=== PATIENT | male | born 2000 | race Two or more races ===

== ENCOUNTER 2023-02-27 00:16 | Emergency (ER) | payer MEDICAID ==
[~2023-02-27] VITALS: Ht 172.7 cm; Wt 90.0 kg
[2023-02-27] MEDS ORDERED: ONDANSETRON HCL 4 MG/2 ML VIAL IVP ONE ×2 (01:15→02:45)
[2023-02-27] MEDS ORDERED: HYDROmorphone HCL 2 MG/ML SYRINGE IVP ONE (01:15)
[2023-02-27 01:44] LABS: BASOPHILS % (AUTO) 0.1 % (0.0-2.0); EOSINOPHILS % (AUTO) 0.1 % (1.0-6.0); HEMATOCRIT 46.3 % (41-53); HEMOGLOBIN 15.5 g/dL (13.5-17.5); LYMPHOCYTES # (AUTO) 1.8 K/uL (1.0-4.8); MEAN CORPUSCULAR HEMOGLOBIN 30.9 pg (26.0-34.0); MEAN CORPUSCULAR HGB CONC 33.4 G/dL (31.0-37.0); MEAN CORPUSCULAR VOLUME 92 fL (80-100); MONOCYTES # (AUTO) 1.3 K/uL (0.1-1.0); NEUTROPHILS # (AUTO) 18.7 K/uL (1.8-7.7); PLATELET COUNT (AUTO) 248 K/uL (150-450); RED BLOOD CELL COUNT(AUTO) 5.02 MIL/uL (4.50-5.90); RED CELL DISTRIBUTION WIDTH 13.1 % (11.5-14.5)
[2023-02-27] MEDS ORDERED: BACITRACIN 0.9 GM PACKET OINTMENT TP ONE (01:45)
[2023-02-27] MEDS ORDERED: PERTUSS(ACELL),DIPH,TET VAC/PF 0.5 ML SYRINGE IM. ONE (01:45)
[2023-02-27 01:51] LABS: NEUTROPHILS % (AUTO) 85.8 % (40.0-70.0)
[2023-02-27 01:54] LABS: ANION GAP 11 mmol/L (8-16); CALCIUM, TOTAL 8.7 mg/dL (8.8-10.5); CARBON DIOXIDE 26 mmol/L (22-29); CHLORIDE 106 mmol/L (98-107); GLOMERULAR FILTR. RATE CALC > 60 mL/min (>60); GLUCOSE,RANDOM 102 mg/dL (70-110); POTASSIUM 3.3 mmol/L (3.5-5.1); SODIUM SERUM 143 mmol/L (136-145)
[2023-02-27] MEDS ORDERED: IOHEXOL 350 MG/ML 100 ML VIAL ONE (02:15)
[2023-02-27] MEDS ORDERED: SODIUM CHLORIDE 0.9% 100 ML ONE (02:15)
[2023-02-27] MEDS ORDERED: LORazepam 2 MG/ML VIAL IVP ONE (02:45)
[2023-02-27 05:30] VITALS: BP 129/78
[2023-02-27] MEDS ORDERED: BACL10TA PO (06:11)
[2023-02-27] MEDS ORDERED: ACET-2080 PO (06:11)
[2023-02-27] MEDS ORDERED: IBUP-1554 PO (06:11)
== END 2023-02-27 06:30 | disposition home or self-care (01) ==
LOC: EMS 00:20
DX: S30.1XXA Contusion of abdominal wall, initial encounter (principal); S80.02XA Contusion of left knee, initial encounter; S80.01XA Contusion of right knee, initial encounter; S90.32XA Contusion of left foot, initial encounter; S90.31XA Contusion of right foot, initial encounter; S20.212A Contusion of left front wall of thorax, initial encounter; V89.2XXA Person injured in unspecified motor-vehicle accident, traffic, initial encounter; Y93.89 Activity, other specified; Y92.89 Other specified places as the place of occurrence of the external cause; Y99.8 Other external cause status
CPT/HCPCS: 80048; 85025; 36415; 71045; 72040; 72070; 72170; 73130 ×2; 73562 ×2; 73590 ×2; 73630 ×2; 74177; 99285; 96376; 96374; 96375; G0480; J1170; J2060; J2405; Q9967; J7050